=== PATIENT | female | born 1970 | race Two or more races ===

== ENCOUNTER 2018-04-19 20:50 | Emergency (ER) | payer MEDICAID ==
[~2018-04-19] VITALS: Ht 160 cm; Wt 68.0 kg
[~2018-04-19 20:50] MED LIST: ATIVAN0.5 MG ORAL; IBUPROFEN600 MG ORAL
[2018-04-19] MEDS ORDERED: MUPIROCIN22 GM TOPIC (21:27)
[2018-04-19] MEDS ORDERED: DOXYCYCLINE MO100 MG ORAL (21:27)
--- NOTE | 2018-04-19 21:27 | Emergency Room Report ---
History of Present Illness General Chief Complaint: Skin Rash/Abscess Source: Patient Present Illness HPI Is a 47-year-old female with no significant past medical history. She presents a rash to her lower leg started yesterday. Slightly itching and redness and warmth. Unknown cause. No insect bite that she knew. No fever chills but no drainage. Has not anything for it. No other complaint. Allergies: Coded Allergies: No Known Allergies (Unverified , 04/19/18) Patient History Past Medical History: see triage record, old chart reviewed Past Surgical History: none Pertinent Family History: none Social History: Denies: smoking Last Menstrual Period: 04/16/18 Now: No Immunizations: other Reviewed Nursing Documentation: PMH: Agreed; PSxH: Agreed Nursing Documentation-PMH Past Medical History: No Stated History Review of Systems Eye: Denies: eye pain, blurred vision ENT: Denies: ear pain, nose congestion, throat swelling Respiratory: Denies: cough, shortness of breath Cardiovascular: Denies: chest pain, palpitations Gastrointestinal: Denies: abdominal pain, diarrhea, nausea, vomiting Musculoskeletal: Denies: back pain, joint pain Skin: Reports: rash Neurological: Denies: headache, numbness Endocrine: Denies: increased thirst, increased urine Hematologic/Lymphatic: Denies: easy bruising All Other Systems: negative except mentioned in HPI Physical Exam Vital Signs Date Time Temp Pulse Resp B/P (MAP) Pulse Ox O2 Delivery O2 Flow Rate FiO2 04/19/18 21:11 98.2 64 16 100/59 98 Room Air 98.2 vitals normal Sp02 EP Interpretation: reviewed, normal General Appearance: well appearing, no apparent distress, alert Head: normocephalic, atraumatic Eyes: bilateral eye PERRL, bilateral eye EOMI ENT: hearing grossly normal, normal pharynx Neck: full range of motion, supple, no meningismus Respiratory: chest non-tender, lungs clear, normal breath sounds Cardiovascular #1: regular rate, rhythm, no murmur Gastrointestinal: normal bowel sounds, non tender, no mass, no organomegaly, no bruit, non-distended Musculoskeletal: back normal, gait/station normal, normal range of motion, other - There is an erythematous lesion measuring about 4 cm in the right inner thigh near the knee. No abscess. Lightly warm to the touch. No induration. Psychiatric: mood/affect normal Skin: warm/dry Medical Decision Making Diagnostic Impression: Primary Impression: Cellulitis of left leg without foot Additional Impression: Cellulitis of right leg without foot ER Course Patient with a cellulitis of the lower extremities. No evidence of any abscess. No necrotizing fasciitis. No septic joint. We'll discharge home. Last Vital Signs Date Time Temp Pulse Resp B/P (MAP) Pulse Ox O2 Delivery O2 Flow Rate FiO2 04/19/18 21:11 98.2 64 16 100/59 98 Room Air 98.2 Status: unchanged Disposition: HOME, SELF-CARE Condition: Stable Scripts Doxycycline Monohydrate* (DOXYCYCLINE MONOHYDRATE*) 100 Mg Capsule 100 MG ORAL Q12H, #14 CAP 0 Refills Prov: ALECIA CHRITSINE M.D. 04/19/18 Mupirocin* (MUPIROCIN*) 22 Gm Oint...g. 1 APPLIC TOPIC THREE TIMES A DAY, #22 GM Prov: ALECIA CHRISTINE M.D. 04/19/18 Additional Instructions: follow-up with your doctor in 7 days. Return if worse ALECIA CHRISTINE M.D. Apr 19, 2018 21:27
[2018-04-19 21:33] VITALS: BP 100/59
== END 2018-04-19 21:45 | disposition home or self-care (01) ==
LOC: EMR 21:35
DX: L03.116 Cellulitis of left lower limb (principal); L03.115 Cellulitis of right lower limb
CPT/HCPCS: 99283

== ENCOUNTER 2018-11-28 21:06 | Emergency (ER) | payer MEDICAID ==
[~2018-11-28] VITALS: Ht 160 cm; Wt 68.0 kg
[~2018-11-28 21:06] MED LIST changes: +DOXYCYCLINE MO100 MG ORAL; +MUPIROCIN22 GM TOPIC
[2018-11-28] MEDS ORDERED: NKM (21:30)
[2018-11-28 21:50] VITALS: BP 119/77
--- NOTE | 2018-11-28 21:50 | NUR ---
ED Nurse Note: Patient presents to ED c/o chest pain and shortness of breath for 6 hours. Patient AOx4, VSS, ambulatory with steady gait, no s/s of acute distress noted at this time. Patient reports 8/10 pain. Patient seen by TALYAD at bedside.
--- NOTE | 2018-11-28 21:50 | Emergency Room Report ---
History of Present Illness General Chief Complaint: Chest Pain Source: Patient Present Illness HPI Patient presents with complaints of discomfort to her left breast area Reports that she felt a small mass about a week ago Patient reports that she had seen her primary physician however was given an appointment about 2 months later Since yesterday and outpatient felt a pain to the midsternal area She also had reported shortness of breath sensation at times Not correlated with any position Denies any fevers denies any cough denies any shortness of breath currently Denies any pleurisy denies any recent travel Allergies: Coded Allergies: No Known Allergies (Unverified , 04/19/18) Patient History Past Medical History: see triage record Pertinent Family History: none Last Menstrual Period: still on Now: No : 8 Para: 8 Reviewed Nursing Documentation: PMH: Agreed; PSxH: Agreed Nursing Documentation-PMH Past Medical History: No Stated History Review of Systems All Other Systems: negative except mentioned in HPI Physical Exam Vital Signs Date Time Temp Pulse Resp B/P (MAP) Pulse Ox O2 Delivery O2 Flow Rate FiO2 11/28/18 21:24 98.6 56 16 119/77 97 Room Air Sp02 EP Interpretation: reviewed, normal General Appearance: well appearing, no apparent distress Head: normocephalic, atraumatic Eyes: bilateral eye PERRL, bilateral eye EOMI ENT: hearing grossly normal, normal pharynx, TMs + canals normal, uvula midline Neck: full range of motion, supple, no meningismus, no bony tend Respiratory: lungs clear, normal breath sounds, no rhonchi, no respiratory distress, no retraction, no accessory muscle use Cardiovascular #1: normal peripheral pulses, regular rate, rhythm, no edema, no gallop, no JVD, no murmur Gastrointestinal: normal bowel sounds, non tender, soft, no mass, no organomegaly, non-distended, no guarding, no hernia, no pulsatile mass, no rebound Genitourinary: no CVA tenderness Musculoskeletal: normal inspection Neurologic: oriented x3, responsive, marble helper III-XII nml as tested, motor strength/ tone normal, sensory intact Psychiatric: mood/affect normal Skin: other - Examination of the left breast area, reveals a tender nodule within the area molar region at approximately 9:00, the area will itself is somewhat flat compared to the right side, no other masses are palpable throughout the breast tissue, no palpable masses in the axilla, there was nothing that was able to be expressed from the areola Lymphatic: normal inspection, no adenopathy Medical Decision Making Diagnostic Impression: Primary Impression: Chest pain Additional Impression: Breast mass ER Course Patient is a fairly complex patient with multiple differential to consideration including but not limited to cardiac cardiopulmonary and vascular emergencies With regards to the complaints of chest pain EKG and chest x-ray are normal Patient's main complaint appears to be related to the palpable mass in the left breast This is discussed with the patient and patient's daughter They are aware that the next test is a mammogram the requires to be performed Differentials and consideration have to include cancer Patient is aware of this and will follow closely EKG Diagnostic Results Rate: normal Rhythm: NSR ST Segments: no acute changes Rhythm Strip Diag. Results EP Interpretation: yes Rate: 60 Rhythm: NSR, no PVC's, no ectopy Chest X-Ray Diagnostic Results Chest X-Ray Diagnostic Results : Chest X-Ray Ordered: Yes # of Views/Limited/Complete: 1 View Indication: Chest Pain EP Interpretation: Yes Interpretation: no consolidation, no effusion, no pneumothorax Impression: No acute disease Electronically Signed by: Cole Vasquez DO Last Vital Signs Date Time Temp Pulse Resp B/P (MAP) Pulse Ox O2 Delivery O2 Flow Rate FiO2 11/28/18 21:24 98.6 56 16 119/77 97 Room Air Status: improved Disposition: HOME, SELF-CARE Condition: Improved Additional Instructions: Patient is provided with the discharge instructions notified to follow up with primary doctor in the next 2-3 days otherwise return to the er with any worsening symptoms. Please note that this report is being documented using [employer] technology. This can lead to erroneous entry secondary to incorrect interpretation by the dictating instrument. Cole Vasquez DO Nov 28, 2018 21:50
[2018-11-28 22:30] VITALS: BP 119/77
--- NOTE | 2018-11-28 22:30 | NUR ---
ED Nurse Note: Patient cleared for discharge by ERMChavez. Patient AOx4, VSS, ambulatory with steady gait, no s/s of acute distress noted at this time. Patient provided with discharge instructions. Patient verbalized understanding. Patient took all personal belongings with her. Patient has daughter at bedside to take her home. Patient ID band removed. Patient instructed to follow up with primary doctor for mammogram.
--- NOTE | 2018-11-29 12:38 | Diagnostic Imaging Report ---
Indication: Chest pain Technique: One view of the chest Comparison: 08/04/2016 Findings: Lungs and pleural spaces are clear. Heart size is normal. No significant interim change Impression: No acute process
== END 2018-11-28 23:30 | disposition home or self-care (01) ==
LOC: EMR 21:41
DX: R07.9 Chest pain, unspecified (principal); N63.0 Unspecified lump in unspecified breast
CPT/HCPCS: 71045; 99283

== ENCOUNTER 2019-01-03 20:12 | Emergency (ER) | payer MEDICAID ==
[~2019-01-03] VITALS: Ht 160 cm; Wt 68.5 kg
[~2019-01-03 20:12] MED LIST changes: +NKM
[2019-01-03] MEDS ORDERED: depression med (20:54)
--- NOTE | 2019-01-03 20:57 | Emergency Room Report ---
History of Present Illness General Chief Complaint: Abdominal Pain Source: Patient Present Illness HPI Patient is a 48-year-old female presented after increased epigastric crampy pain. Patient had associated nausea and diarrhea. Patient denies any fever. She had not been feeling dizzy or lightheaded. She denies prior abdominal surgeries. She had prior history of fatty liver. Pain was intermittent. Allergies: Coded Allergies: No Known Allergies (Unverified , 04/19/18) Patient History Past Medical History: see triage record Past Surgical History: none Last Menstrual Period: 12/23/2018 Now: No Reviewed Nursing Documentation: PMH: Agreed; PSxH: Agreed Nursing Documentation-PMH Past Medical History: No History, Except For History Of Psychiatric Problem: Yes - depression Review of Systems All Other Systems: negative except mentioned in HPI Physical Exam Vital Signs Date Time Temp Pulse Resp B/P (MAP) Pulse Ox O2 Delivery O2 Flow Rate FiO2 01/03/19 20:51 98.6 86 16 111/78 99 Room Air Sp02 EP Interpretation: reviewed, normal General Appearance: normal inspection, well appearing, no apparent distress, alert, GCS 15, non-toxic Head: atraumatic ENT: normal ENT inspection, hearing grossly normal, normal voice Neck: normal inspection, full range of motion, supple, no bony tend Respiratory: normal inspection, lungs clear, normal breath sounds, no respiratory distress, no retraction, no wheezing Cardiovascular #1: regular rate, rhythm, no edema Gastrointestinal: normal inspection, normal bowel sounds, non tender, soft, no guarding, no hernia Genitourinary: no CVA tenderness Musculoskeletal: normal inspection, back normal, normal range of motion Neurologic: normal inspection, alert, responsive, speech normal Psychiatric: normal inspection, judgement/insight normal, mood/affect normal Skin: normal inspection, normal color, no rash Medical Decision Making Diagnostic Impression: Primary Impression: Abdominal pain ER Course Patient presented for abdominal pain. Differential diagnoses included ischemic bowel, appendicitis, perforated viscus, abdominal aortic aneurysm, inferior myocardial infarction, viral gastroenteritis among others. Patient has a benign exam and does not appear to require any further imaging or laboratory testing at this timePatient was noted to have what appears to be gastroenteritis. Patient was given indications for symptomatic treatment.Patient presented with a viral gastroenteritis. She does not appear to have any evidence of acute abdomen. Patient given medication prescriptions for symptomatic treatment. Patient was advised outpatient follow-up with her primary care physician. The patient is advised to follow up with primary care doctor in 1-2 days. Patient is advised to return if any worsening condition or if any changes in status that are concerning. This report is dictated with [employer] machine lead burner software which may occasionally lead to discrepancies related to use of this software. Labs Test 01/03/19 21:00 Urine HCG, Qualitative Negative (NEGATIVE) Last Vital Signs Date Time Temp Pulse Resp B/P (MAP) Pulse Ox O2 Delivery O2 Flow Rate FiO2 01/03/19 20:51 98.6 86 16 111/78 99 Room Air Status: improved Disposition: HOME, SELF-CARE Condition: Stable Scripts Ondansetron (Zofran) 4 Mg Tablet 4 MG ORAL Q6H PRN for Nausea & Vomiting, #30 TAB 0 Refills Prov: Dom Colunga MD 01/03/19 Dicyclomine Hcl* (DICYCLOMINE HCL*) 10 Mg Capsule 10 MG PO QID, #30 CAP Prov: Dom Colunga MD 01/03/19 Dom Colunga MD Jan 03, 2019 20:57
[2019-01-03] MEDS ORDERED: ZOFRAN4 MG ORAL (20:59)
[2019-01-03] MEDS ORDERED: DICYCLOMINE HCL10 MG PO (20:59)
[2019-01-03 21:00] VITALS: BP 111/78
[2019-01-03] MEDS ORDERED: Dicyclomine HCl 10mg/5ml oral soln ORAL ONE (21:00)
[2019-01-03] MEDS ORDERED: Lidocaine 2% Visc 15ml soln ORAL ONE (21:00)
--- NOTE | 2019-01-03 21:01 | NUR ---
ED Nurse Note: Patient walk in c/o upper abdominal pain and diarrhea since wednesday. Patient reports fever and chills.
[2019-01-03 21:55] VITALS: BP 111/78
--- NOTE | 2019-01-03 21:55 | NUR ---
ER DISCHARGE NOTE: Patient is cleared to be discharged per ERMD, pt is aox4, on room air, with stable vital signs. pt was given dc and prescription instructions, pt was able to verbalize understanding, pt id band removed. pt is able to ambulate with steady gait. pt took all belongings.
== END 2019-01-03 21:55 | disposition home or self-care (01) ==
LOC: EMR 20:47
DX: R10.13 Epigastric pain (principal); R11.0 Nausea; R19.7 Diarrhea, unspecified; F32.9 Major depressive disorder, single episode, unspecified
CPT/HCPCS: 81025; 99283

== ENCOUNTER 2019-07-08 16:53 | Emergency (ER) | payer MEDICAID ==
[~2019-07-08] VITALS: Ht 160 cm; Wt 68.0 kg
[~2019-07-08 16:53] MED LIST changes: +DICYCLOMINE HCL10 MG PO; +ZOFRAN4 MG ORAL; +depression med
--- NOTE | 2019-07-08 17:40 | NUR ---
ED Nurse Note: pt presents to ED c/o lower abd pain that she rates a 10/10 which radiates throughout her body causing generalized pain. pt also reports dysuria and increased fatgiue, SOB since yesterday. pt reports feeling nauseated but not vomiting. upon assessment pt has stable vital signs: HR: 56 RR: 11 100% on room air 111/65
[2019-07-08 17:45] VITALS: BP 111/65
[2019-07-08] MEDS ORDERED: Dicyclomine HCl 10mg/5ml oral soln ORAL ONE (17:45)
[2019-07-08] MEDS ORDERED: Mylanta II UD 30ml ORAL ONE (17:45)
[2019-07-08] MEDS ORDERED: Lidocaine 2% Visc 15ml soln ORAL ONE (17:45)
--- NOTE | 2019-07-08 17:50 | NUR ---
ED Nurse Note: pt's is at bedside
[2019-07-08 18:16] LABS: APPEARANCE,URINE CLEAR; BILIRUBIN, URINE NEGATIVE (NEGATIVE); COLOR,URINE PALE YELLOW; GLUCOSE, URINE (UA) NEGATIVE (NEGATIVE); KETONES,URINE NEGATIVE (NEGATIVE); LEUKOCYTE ESTERASE ,URINE NEGATIVE (NEGATIVE); NITRITE,URINE NEGATIVE (NEGATIVE); PH,URINE 6 (4.5-8.0); PROTEIN,URINE NEGATIVE (NEGATIVE); UROBILINOGEN,URINE NORMAL MG/DL (0.0-1.0)
--- NOTE | 2019-07-08 18:20 | NUR ---
ED Nurse Note: pt is reporting chills, oral temp is 97.9
[2019-07-08 18:23] LABS: ANION GAP 8 mmol/L (5-15); BLOOD UREA NITROGEN 10 mg/dL (7-18); CALCIUM 9.1 MG/DL (8.5-10.1); CARBON DIOXIDE 26 MMOL/L (21-32); CHLORIDE 106 MMOL/L (98-107); CREATININE 0.8 MG/DL (0.55-1.30); EOSINOPHILS % (AUTO) 2.1 % (0.0-3.0); HEMATOCRIT 40.9 % (37.0-47.0); HEMOGLOBIN 14.5 G/DL (12.0-16.0); MEAN CORPUSCULAR VOLUME 92 FL (80-99); MONOCYTES % (AUTO) 6.4 % (1.0-10.0); NEUTROPHILS % (AUTO) 54.6 % (45.0-75.0); PLATELET COUNT 211 K/UL (150-450); POTASSIUM 3.9 MMOL/L (3.5-5.1); RED BLOOD COUNT 4.42 M/UL (4.20-5.40); RED CELL DISTRIBUTION WIDTH 10.5 % (11.6-14.8); SODIUM 140 MMOL/L (136-145); WHITE BLOOD COUNT 7.3 K/UL (4.8-10.8)
[2019-07-08 18:28] LABS: ALANINE AMINOTRANSFERASE 25 U/L (12-78); ALBUMIN 3.8 G/DL (3.4-5.0); ALBUMIN/GLOBULIN RATIO 0.9 (1.0-2.7); ALKALINE PHOSPHATASE 71 U/L (46-116); ASPARTATE AMINO TRANSFERASE 16 U/L (15-37); BILIRUBIN,TOTAL 0.4 MG/DL (0.2-1.0)
[2019-07-08 18:55] VITALS: BP 124/71
--- NOTE | 2019-07-08 19:11 | NUR ---
ED Nurse Note: HAND-OFF: Report given to NENITA Chavez. pt will be d/c
[2019-07-08] MEDS ORDERED: RANITIDINE HCL150 MG ORAL (19:14)
[2019-07-08] MEDS ORDERED: DICYCLOMINE HCL10 MG ORAL (19:14)
[2019-07-08] MEDS ORDERED: ONDANSETRON ODT4 MG BC (19:14)
--- NOTE | 2019-07-08 19:15 | NUR ---
ED Nurse Note: Recieved report to resume care, [facility], pain is better, iv site patent, will remove and prepare for d/c, at bedside.
[2019-07-08 20:00] VITALS: BP 124/71
--- NOTE | 2019-07-08 20:00 | NUR ---
ER DISCHARGE NOTE: Patient is cleared to be discharged per ERMD, pt is aox4, on room air, with stable vital signs. pt was given dc and prescription instructions, pt was able to verbalize understanding, pt id band and iv site removed without complications. pt is able to ambulate with steady gait. pt took all belongings. pt d/c by eugene reddy.
--- NOTE | 2019-07-08 20:58 | Emergency Room Report ---
History of Present Illness General Chief Complaint: Abdominal Pain Source: Patient Present Illness HPI 49-year-old female presents ED for evaluation. Complaining of abdominal pain x1 day. Pain is epigastric, burning, 7 out of 10, radiating to the back. Notes nausea, denies vomiting. Denies chest pain or shortness of breath. Denies diarrhea. No other aggravating relieving factors. Denies any other associated symptoms Allergies: Coded Allergies: No Known Allergies (Unverified , 04/19/18) Patient History Past Medical History: none Past Surgical History: none Pertinent Family History: none Social History: Denies: smoking, alcohol use, drug use Now: No Immunizations: UTD Reviewed Nursing Documentation: PMH: Agreed; PSxH: Agreed Nursing Documentation-PMH Past Medical History: No Stated History Review of Systems All Other Systems: negative except mentioned in HPI Physical Exam Vital Signs Date Time Temp Pulse Resp B/P (MAP) Pulse Ox O2 Delivery O2 Flow Rate FiO2 07/08/19 17:15 98.8 62 18 104/71 (82) 98 Room Air Sp02 EP Interpretation: reviewed, normal General Appearance: no apparent distress, alert, GCS 15, non-toxic Head: normocephalic, atraumatic Eyes: bilateral eye normal inspection, bilateral eye PERRL ENT: hearing grossly normal, normal pharynx, no angioedema, normal voice Neck: full range of motion, supple/symm/no masses Respiratory: chest non-tender, lungs clear, normal breath sounds, speaking full sentences Cardiovascular #1: regular rate, rhythm, no edema Cardiovascular #2: 2+ carotid (R), 2+ carotid (L), 2+ radial (R), 2+ radial (L) , 2+ dorsalis pedis (R), 2+ dorsalis pedis (L) Gastrointestinal: normal bowel sounds, soft, non-distended, no guarding, no rebound, tenderness - epigastric Rectal: deferred Genitourinary: normal inspection, no CVA tenderness Musculoskeletal: back normal, gait/station normal, normal range of motion, non- tender Neurologic: alert, oriented x3, responsive, motor strength/tone normal, sensory intact, speech normal Psychiatric: judgement/insight normal, memory normal, mood/affect normal, no suicidal/homicidal ideation Reflexes: 3+ bicep (R), 3+ bicep (L), 3+ tricep (R), 3+ tricep (L), 3+ knee (R) , 3+ knee (L) Lymphatic: no adenopathy Medical Decision Making Diagnostic Impression: Primary Impression: Gastritis Qualified Codes: K29.00 - Acute gastritis without bleeding ER Course Hospital Course 49-year-old F presents to ED with epigastric pain with nausea differential diagnosis: gastritis, SBO, cholecystits Clinical course Patient placed on stretcher. On desk monitor. After initial history and physical I ordered labs, IV fluids, Zofran, GI cocktail and pepcid Labs - no leukocytosis, no electrolyte abnormalities, LFTs normal, Upon reassessment, patient states pain has improved. findings consistent with gastritis. Discussed findings with patient. Will discharge to home with prescriptions. Does not have a PMD. Will provide referrals I feel this is a highly complex case requiring extensive working including EKG/ Rhythm strip, Xray/CT/US, Blood/urine lab work, repeat exams while in ED, and administration of strong opiates/narcotics for pain control, admission to hospital or close patient follow up. Diagnosis - gastritis Stable and discharged to home with prescriptions for Zantac, zofran, bentyl. Followup with PMD. Return to ED if symptoms recur or worsen Labs Test 07/08/19 17:50 07/08/19 17:59 Urine Color Pale yellow Urine Appearance Clear Urine pH 6 (4.5-8.0) Urine Specific [place] 1.005 (1.005-1.035) Urine Protein Negative (NEGATIVE) Urine Glucose (UA) Negative (NEGATIVE) Urine Ketones Negative (NEGATIVE) Urine Blood Negative (NEGATIVE) Urine Nitrite Negative (NEGATIVE) Urine Bilirubin Negative (NEGATIVE) Urine Urobilinogen Normal MG/DL (0.0-1.0) Urine Leukocyte Esterase Negative (NEGATIVE) Urine HCG, Qualitative Negative (NEGATIVE) White Blood Count 7.3 K/UL (4.8-10.8) Red Blood Count 4.42 M/UL (4.20-5.40) Hemoglobin 14.5 G/DL (12.0-16.0) Hematocrit 40.9 % (37.0-47.0) Mean Corpuscular Volume 92 FL (80-99) Mean Corpuscular Hemoglobin 32.7 PG (27.0-31.0) Mean Corpuscular Hemoglobin Concent 35.3 G/DL (32.0-36.0) Red Cell Distribution Width 10.5 % (11.6-14.8) Platelet Count 211 K/UL (150-450) Mean Platelet Volume 6.5 FL (6.5-10.1) Neutrophils (%) (Auto) 54.6 % (45.0-75.0) Lymphocytes (%) (Auto) 36.0 % (20.0-45.0) Monocytes (%) (Auto) 6.4 % (1.0-10.0) Eosinophils (%) (Auto) 2.1 % (0.0-3.0) Basophils (%) (Auto) 1.0 % (0.0-2.0) Sodium Level 140 MMOL/L (136-145) Potassium Level 3.9 MMOL/L (3.5-5.1) Chloride Level 106 MMOL/L (98-107) Carbon Dioxide Level 26 MMOL/L (21-32) Anion Gap 8 mmol/L (5-15) Blood Urea Nitrogen 10 mg/dL (7-18) Creatinine 0.8 MG/DL (0.55-1.30) Estimat Glomerular Filtration Rate > 60 mL/min (>60) Glucose Level 112 MG/DL (74-106) Calcium Level 9.1 MG/DL (8.5-10.1) Total Bilirubin 0.4 MG/DL (0.2-1.0) Aspartate Amino Transf (AST/SGOT) 16 U/L (15-37) Alanine Aminotransferase (ALT/SGPT) 25 U/L (12-78) Alkaline Phosphatase 71 U/L (46-116) Total Protein 7.9 G/DL (6.4-8.2) Albumin 3.8 G/DL (3.4-5.0) Globulin 4.1 g/dL Albumin/Globulin Ratio 0.9 (1.0-2.7) Lipase 182 U/L (73-393) Human Chorionic Gonadotropin, Qual Negative (NEGATIVE) Last Vital Signs Date Time Temp Pulse Resp B/P (MAP) Pulse Ox O2 Delivery O2 Flow Rate FiO2 07/08/19 18:55 23 124/71 99 Room Air 07/08/19 18:21 97.9 07/08/19 17:45 62 Status: improved Disposition: HOME, SELF-CARE Condition: Stable Scripts Dicyclomine Hcl* (DICYCLOMINE HCL*) 10 Mg Capsule 10 MG ORAL QID, #20 CAP Prov: Butch Haddad MD 07/08/19 Ranitidine Hcl* (ZANTAC*) 150 Mg Tablet 150 MG ORAL TWICE A DAY, #30 TAB Prov: Butch Haddad MD 07/08/19 Ondansetron Odt* (ZOFRAN ODT*) 4 Mg Tab.rapdis 4 MG BC EVERY 6 HOURS PRN for Nausea & Vomiting, #20 TAB 0 Refills Prov: Butch Haddad MD 07/08/19 Referrals: NOT CHOSEN IPA/,REFERRING (PCP) [facility] Patient Instructions: Gastritis, Adult, Pyqu-cx-Oacl Butch Haddad MD Jul 08, 2019 20:58
== END 2019-07-08 20:00 | disposition home or self-care (01) ==
LOC: EMR 18:16
DX: K29.00 Acute gastritis without bleeding (principal)
CPT/HCPCS: 36415; 80053; 81003; 81025; 83690; 84703; 85025; 96361; 96374; 96375; J2405; S0028; Z7502; 99284

== ENCOUNTER 2020-02-28 15:07 | Emergency (ER) | payer MEDICAID ==
[~2020-02-28] VITALS: Ht 160 cm; Wt 65.8 kg
--- NOTE | 2020-02-28 15:01 | NUR ---
ED Nurse Note: PT walked in to ed for C/O fever and cough x 5 days. temp at triage is 101 f orally
[2020-02-28 15:02] VITALS: BP 116/64
[~2020-02-28 15:07] MED LIST changes: +DICYCLOMINE HCL10 MG ORAL; +OMEPRAZOLE20 M3 ORAL; +ONDANSETRON ODT4 MG BC; +RANITIDINE HCL150 MG ORAL; +TYLENOL EXTRA500 MG ORAL; +ZOFRAN4 M1 ORAL
--- NOTE | 2020-02-28 15:42 | Emergency Room Report ---
History of Present Illness General Chief Complaint: Flu Like Symptoms Source: Patient (Hardeep Parks) Present Illness HPI 49-year-old female with no significant past medical history here complaining of 1 week of cough and 1 day of fever. Patient Fahrenheit upon arrival. Denies any shortness of denies generalized body ache. Patient reports that she has been staying home with her mom and brother the whole time. Sitting comfortably with stable vital signs other than a temperature 1. Denies any history of diabetes, tobacco smoke, drug use. Denies . Has not taken medication for symptom relief. (Hardeep Parks) Allergies: Coded Allergies: No Known Allergies (Unverified , 04/19/18) COVID-19 Screening Contact w/high risk pt: No Recent Travel to affected area: No Experienced COVID-19 symptoms?: Yes COVID-19 symptoms experienced: Fever (T>100.4F or >38C), Cough, Flu-Like Symptoms COVID-[address] MARKER: No (Hardeep Parks) Patient History Past Medical History: see triage record Past Surgical History: none Pertinent Family History: none Last Menstrual Period: na Now: No Immunizations: UTD Reviewed Nursing Documentation: PMH: Agreed; PSxH: Agreed (Hardeep Parks) Nursing Documentation-PMH Past Medical History: No Stated History (Hardeep Parks) Review of Systems All Other Systems: negative except mentioned in HPI (Hardeep Parks) Physical Exam Vital Signs Date Time Temp Pulse Resp B/P (MAP) Pulse Ox O2 Delivery O2 Flow Rate FiO2 02/28/20 14:59 100.9 84 18 116/64 (81) 98 02/28/20 15:02 Room Air Sp02 EP Interpretation: reviewed, abnormal - Elevated temperature General Appearance: no apparent distress, alert, GCS 15, non-toxic Head: normocephalic, atraumatic Eyes: bilateral eye normal inspection, bilateral eye PERRL ENT: hearing grossly normal, normal pharynx, no angioedema, normal voice Neck: full range of motion, supple/symm/no masses Respiratory: chest non-tender, lungs clear, normal breath sounds, no rhonchi, no retraction, speaking full sentences Cardiovascular #1: regular rate, rhythm, no edema, no murmur Gastrointestinal: normal bowel sounds, non tender, soft, non-distended, no guarding, no rebound Rectal: deferred Genitourinary: no CVA tenderness Musculoskeletal: back normal Neurologic: alert, motor strength/tone normal, oriented x3, sensory intact, responsive, speech normal Psychiatric: judgement/insight normal, memory normal, mood/affect normal, no suicidal/homicidal ideation Skin: no rash Lymphatic: no adenopathy (Hardeep Parks) Medical Decision Making PA Attestation All my diagnosis and treatment plans were reviewed ad discussed with my supervising physician Dr. Haddad (Hardeep Parks) Diagnostic Impression: Primary Impression: Suspected 2019 novel coronavirus infection Additional Impression: URI (upper respiratory infection) ER Course 49-year-old female with no significant past medical history here complaining of 1 week of cough and 1 day of fever. Patient Fahrenheit upon arrival. Denies any shortness of denies generalized body ache. Patient reports that she has been staying home with her mom and brother the whole time. Sitting comfortably with stable vital signs other than a temperature 1. Denies any history of diabetes, tobacco smoke, drug use. Denies . Has not taken medication for symptom relief. Ddx considered but are not limited to: Coronavirus, strep pharyngitis, URI, tonsillitis, peritonsillar abscess, influneza Vital signs: are WNL, pt. is afebrile H&PE are most consistent with: Suspected coronavirus, URI ORDERS: Chest x-ray, azithromycin, Phenergan, albuterol, covert testing ED INTERVENTIONS: Tylenol DISCHARGE: At this time pt. is stable for d/c to home. Will provide printed patient care instructions, and any necessary prescriptions. Care plan and follow up instructions have been discussed with the patient prior to discharge. Patient to follow primary doctor, take medication as directed, self isolate for 2 weeks, increase oral hydration, if worsening symptoms in respiratory distress return to the emergency room (Hardeep Parks) ER Course This is an addendum to the patient's chart, at this time in the morning at the time of dictation I was handed a positive covid-19 result. Patient is contacted. She reports feeling well and improved from her previous visit. She was notified regarding the testing results the appropriate quarantine and repeat testing after resolution of symptoms As needed And strict return to the emergency room with worsening symptoms precautions (Cole Vasquez DO) Chest X-Ray Diagnostic Results Chest X-Ray Diagnostic Results : Chest X-Ray Ordered: Yes # of Views/Limited/Complete: 1 View Indication: Other - Cough EP Interpretation: Yes PA Xray: Interpretation reviewed, by supervising MD, and agrees with findings. Interpretation: other - Consolidation on the right lower lobe Impression: Other - Consolidation right lower lobe Electronically Signed by: Hardeep Espinoza PA-C (Hardeep Parks) Last Vital Signs Date Time Temp Pulse Resp B/P (MAP) Pulse Ox O2 Delivery O2 Flow Rate FiO2 02/28/20 15:02 100.9 84 18 116/64 98 Room Air (Hardeep Parks) Disposition: HOME, SELF-CARE Condition: Stable Scripts Azithromycin* (ZITHROMAX*) 250 Mg Tablet 250 MG ORAL DAILY, #6 TAB 0 Refills Take two tables once daily for 1 day, then one tablet once daily for 4 days. Prov: Hardeep Parks 02/28/20 Promethazine Hcl (PROMETHAZINE HCL*) 6.25 Mg/5 Ml Syrup 5 ML ORAL Q8H, #120 ML 0 Refills Prov: Hardeep Parks 02/28/20 Albuterol Sulfate (VENTOLIN HFA) 18 Gm Hfa.aer.ad 2 PUFFS INH EVERY 6 HOURS, #18 GM 0 Refills Prov: Hardeep Parks 02/28/20 Referrals: NOT CHOSEN IPA/,REFERRING (PCP) Patient Instructions: Upper Respiratory Infection, Adult, [id number] Additional Instructions: Take medication as directed, follow-up with your primary doctor, you need to be self quarantining for 14 days, if in respiratory distress and worsening symptoms return to the emergency room. Hardeep Parks Feb 28, 2020 15:42 Cole Vasquze DO Feb 29, 2020 10:00
[2020-02-28] MEDS ORDERED: VENTOLIN HFA18 GM INH (15:43)
[2020-02-28] MEDS ORDERED: PROMETHAZI6.25 MG/1 ORAL (15:43)
[2020-02-28] MEDS ORDERED: ZITHROMAX250 MG ORAL (15:43)
[2020-02-28 15:55] VITALS: BP 120/60
--- NOTE | 2020-02-28 15:55 | NUR ---
ER DISCHARGE NOTE: Patient is cleared to be discharged per ERMD, pt is aox4, on room air, with stable vital signs. pt was given dc and prescription instructions, pt was able to verbalize understanding, pt id iv site removed without complications. pt is able to ambulate with steady gait. pt took all belongings.
--- NOTE | 2020-02-28 16:57 | Diagnostic Imaging Report ---
Indication: Cough Technique: One view of the chest Comparison: 11/28/2018 Findings: Suboptimal inspiration currently. There are hazy opacities of both lung bases. The heart size is normal. Impression: Bilateral basilar hazy opacities. Could represent artifacts due to suboptimal inspiration or overlying soft tissue, but infiltrates also possible. Correlate with clinical findings
== END 2020-02-28 15:55 | disposition home or self-care (01) ==
LOC: EDBD 15:07 → EMR 15:24
DX: U07.1 COVID-19 (principal); J06.9 Acute upper respiratory infection, unspecified
CPT/HCPCS: 71045; Z7502; 99283

== ENCOUNTER 2020-07-28 11:54 | Emergency (ER) | payer MEDICAID ==
[~2020-07-28] VITALS: Ht 160 cm; Wt 63.5 kg
[~2020-07-28 11:54] MED LIST changes: +PROMETHAZI6.25 MG/1 ORAL; +VENTOLIN HFA18 GM INH; +ZITHROMAX250 MG ORAL
[2020-07-28 12:09] VITALS: BP 111/72
--- NOTE | 2020-07-28 12:16 | Emergency Room Report ---
History of Present Illness General Chief Complaint: Back Pain-No Injury Source: Patient Present Illness HPI Disclaimer: Please note that this report is being documented using DRAGON technology. This can lead to erroneous entry secondary to incorrect interpretation by the dictating instrument. HPI: 50-year-old female presents for evaluation of back pain. Symptoms present for 3 months. She reports an aching intermittent pain in the lower lumbar spine on the midline. Denies history of trauma or recent trauma. Denies numbness, tingling, weakness, difficulty passing urine, fever, chills. She states the pain was initially intermittent however the past month seems to be more constant. Exacerbated by bending and over and cleaning and relieved by rest. She is not taking regular medication for this. Has not seen her PMD as she does not have an appointment until September 2020. Does not inject any medications or IV drugs. Otherwise denies recent fever, chills, chest pain, palpitation, shortness of breath, abdominal pain, vomiting or diarrhea. Does report some lower pelvic pressure. Reports an abnormally long menstrual period 3 months ago and has not had her period since. Denies vaginal bleeding or vaginal discharge. PMH: Anxiety, depression PSH: Allergies: Reviewed Social Hx: Reviewed Allergies: Coded Allergies: No Known Allergies (Unverified , 04/19/18) COVID-19 Screening Contact w/high risk pt: No Recent Travel to affected area: No Experienced COVID-19 symptoms?: No COVID-19 symptoms experienced: Fever (T>100.4F or >38C), Cough, Flu-Like Symptoms COVID-19 Testing performed VASCULAR TECHNOLOGIST: No Nursing Documentation-PMH Past Medical History: No Stated History Review of Systems All Other Systems: negative except mentioned in HPI Physical Exam Vital Signs Date Time Temp Pulse Resp B/P (MAP) Pulse Ox O2 Delivery O2 Flow Rate FiO2 07/28/20 12:00 98.4 60 17 111/72 (85) 96 Room Air General: Awake and alert, no acute distress HEENT: NC/AT. EOMI. Resp: Normal work of breathing Abdomen: Obese abdomen. Soft, nontender, nondistended. Skin: Intact. No abrasions, laceration or rash over the exposed skin MSK: Normal tone and bulk. Moving all extremities. No obvious deformity. Ambulating with steady gait. Strength is 5/5 at the hips, knees and ankles. Neuro: Awake and alert. Mentating appropriately. Sensation intact over the dermatomes of lower extremity bilaterally. No saddle anesthesia. Spine: No tenderness, step-off or deformity in the midline over the lower lumbar spine. No significant paraspinal tenderness. Medical Decision Making Diagnostic Impression: Primary Impression: Irregular menses Additional Impression: Lumbar strain ER Course 50-year-old female presents for evaluation of lower back pain. Differential includes was not limited to lumbar strain/sprain, paraspinal spasm, in particular disc disease, osteoarthritis, spondylolisthesis, occult fracture, UTI, pyelonephritis, menopause, dysfunctional uterine bleeding, among others. There are no clinical signs or symptoms of cauda equina syndrome or spinal epidural abscess. Patient is neurologically intact. No evidence of urinary tract infection. hCG is negative. Lumbar x-rays do not show acute fracture loss of vertebral height. There are some loss of lordosis which may represent spasm. Patient treated with lidocaine patch and Motrin. We will also di scharged with Robaxin. Regarding her abnormal uterine bleeding she should follow-up with her [employer]IST. At this time do not believe she requires emergent imaging or further labs. Discussed reasons to return to the emergency department. She understands and agrees with this treatment plan. Other X-Ray Diagnostic Results Other X-Ray Diagnostic Results : X-Ray ordered: Lumbar spine # of Views/Limited Vs Complete: 2 View Indication: Pain Interpretation: no dislocation, no soft tissue swelling, no fractures Impression: No acute disease Electronically Signed by: Electronically signed by Dr. Isidro Velásquez MD Last Vital Signs Date Time Temp Pulse Resp B/P (MAP) Pulse Ox O2 Delivery O2 Flow Rate FiO2 07/28/20 12:09 98.4 87 17 111/72 96 Room Air Disposition: HOME, SELF-CARE Condition: Stable Scripts Lidocaine Patch* (Lidoderm Patch*) 1 Each Adh..patch 1 PATCH TOPIC DAILY, #14 PATCH 0 Refills Patch(es) may remain in place for up to 12 hours in any 24-hour period. Prov: Isidro Velásquez MD 07/28/20 Methocarbamol* (ROBAXIN-750*) 750 Mg Tablet 750 MG PO TID, #21 TAB 0 Refills Prov: Isidro Velásquez MD 07/28/20 Ibuprofen* (MOTRIN*) 600 Mg Tablet 600 MG ORAL Q6H PRN for For Pain, #30 TAB 0 Refills Prov: Isidro Velásquez MD 07/28/20 Acetaminophen* (TYLENOL EXTRA STRENGTH*) 500 Mg Tablet 500 MG ORAL Q8H PRN for Prn Headache/Temp > 101, #30 TAB 0 Refills Prov: Isidro Velásquez MD 07/28/20 Isidro Velásquez MD Jul 28, 2020 12:16
[2020-07-28 12:39] LABS: APPEARANCE,URINE CLEAR; BILIRUBIN, URINE NEGATIVE (NEGATIVE); COLOR,URINE PALE YELLOW; GLUCOSE, URINE (UA) NEGATIVE (NEGATIVE); KETONES,URINE NEGATIVE (NEGATIVE); LEUKOCYTE ESTERASE ,URINE NEGATIVE (NEGATIVE); NITRITE,URINE NEGATIVE (NEGATIVE); PH,URINE 5 (4.5-8.0); PROTEIN,URINE NEGATIVE (NEGATIVE); UROBILINOGEN,URINE NORMAL MG/DL (0.0-1.0)
[2020-07-28] MEDS ORDERED: TYLENOL EXTRA500 MG ORAL (13:07)
[2020-07-28] MEDS ORDERED: ROBAXIN-750750 MG PO (13:07)
[2020-07-28] MEDS ORDERED: LIDODERM700 M1 TOPIC (13:07)
[2020-07-28] MEDS ORDERED: IBUPROFEN600 M1 ORAL (13:07)
--- NOTE | 2020-07-28 13:23 | Diagnostic Imaging Report ---
EXAM: XR Lumbar Spine, 3 Views CLINICAL HISTORY: PAIN TECHNIQUE: Frontal, lateral, and lateral coned-down views of the lumbar spine. COMPARISON: No relevant prior studies available. FINDINGS: Vertebrae: Unremarkable. 5 [id number] lumbar vertebral segments are seen. Lumbar vertebral body heights are preserved. Normal alignment. Disc spaces: No significant narrowing. Soft tissues: Unremarkable. IMPRESSION: Unremarkable lumbar spine x-rays.
[2020-07-28 13:38] VITALS: BP 132/85
== END 2020-07-28 13:43 | disposition home or self-care (01) ==
LOC: EMR 12:23
DX: N92.6 Irregular menstruation, unspecified (principal); S39.012A Strain of muscle, fascia and tendon of lower back, initial encounter; X50.9XXA Other and unspecified overexertion or strenuous movements or postures, initial encounter; F41.9 Anxiety disorder, unspecified; F32.9 Major depressive disorder, single episode, unspecified
CPT/HCPCS: 72020; 81003; 81025; Z7502; 99283

== ENCOUNTER 2020-12-02 17:58 | Emergency (ER) | payer MEDICAID ==
[~2020-12-02] VITALS: Ht 167.6 cm; Wt 77.1 kg
[~2020-12-02 17:58] MED LIST changes: +IBUPROFEN600 M1 ORAL; +LIDODERM700 M1 TOPIC; +ROBAXIN-750750 MG PO
--- NOTE | 2020-12-02 18:49 | Emergency Room Report ---
History of Present Illness General Chief Complaint: Abdominal Pain Source: Patient Present Illness HPI 50 YO female presents to the ED c/o 04/29 in severity lower midline pelvic pain that is constant and described as pressure x 2 days. Pt. denies urinary frequency, urgency, hematuria or dysuria. Denies constipation or diarrhea. Denies nausea or vomiting. Denies fevers or chills. Denies pain or tenderness elsewhere in the abdomen. She denies vaginal bleeding. She reports some aching in the low back that is of lesser degree. She denies numbness, tingling, weakness or skin color changes of the LE's. She denies pain in the lower extremities. She denies PmHx. She denies taking any medications. Allergies: Coded Allergies: No Known Allergies (Unverified , 04/19/18) COVID-19 Screening Contact w/high risk pt: No Recent Travel to affected area: No Experienced COVID-19 symptoms?: No COVID-19 symptoms experienced: Fever (T>100.4F or >38C), Cough, Flu-Like Symptoms COVID-19 Testing performed CORN GROWER: No Patient History Past Medical History: see triage record Past Surgical History: none Pertinent Family History: none Now: No Reviewed Nursing Documentation: PMH: Agreed; PSxH: Agreed Nursing Documentation-PMH Past Medical History: No Stated History Review of Systems All Other Systems: negative except mentioned in HPI Physical Exam Vital Signs Date Time Temp Pulse Resp B/P (MAP) Pulse Ox O2 Delivery O2 Flow Rate FiO2 12/02/20 18:22 98.1 74 20 130/75 (93) 98 Room Air Sp02 EP Interpretation: reviewed, normal General Appearance: no apparent distress, alert, GCS 15, non-toxic Head: normocephalic, atraumatic Eyes: bilateral eye normal inspection, bilateral eye PERRL ENT: hearing grossly normal, normal voice Neck: full range of motion Respiratory: lungs clear, normal breath sounds, speaking full sentences Cardiovascular #1: regular rate, rhythm, no edema Gastrointestinal: normal bowel sounds, soft, no peritonitis, non-distended, no guarding, tenderness - midline pelvic area. Rectal: deferred Genitourinary: normal inspection, no CVA tenderness, adnexa normal Musculoskeletal: back normal, normal range of motion, gait/station normal, non- tender Neurologic: alert, motor strength/tone normal, oriented x3, sensory intact, responsive, speech normal Psychiatric: judgement/insight normal Medical Decision Making PA Attestation Dr. Colunga is my supervising Physician whom patient management has been discussed with. Diagnostic Impression: Primary Impression: Ovarian cyst Qualified Codes: N83.202 - Unspecified ovarian cyst, left side Additional Impression: Pelvic pain ER Course 50 YO female presents to the ED c/o 8/10 in severity lower midline pelvic pain that is constant and described as pressure x 2 days. Pt. denies urinary frequency, urgency, hematuria or dysuria. Denies constipation or diarrhea. Denies nausea or vomiting. Denies fevers or chills. Denies pain or tenderness elsewhere in the abdomen. She denies vaginal bleeding. She reports some aching in the low back that is of lesser degree. She denies numbness, tingling, weakness or skin color changes of the LE's. She denies pain in the lower extremities. She denies PmHx. She denies taking any medications. Ddx considered but are not limited to Diverticulitis, acute appendicitis, diarrhea,UC, PUD, GE, pancreatitis, gallstone, ovarian torsion, ectopic , PID tubo-ovarian abscess. Vital signs: are WNL, pt. is afebrile. H&PE are most consistent with possible uterine fibroid as possible pathology, pt. non-toxic in appearance, NAD. Abdomen is soft, non-distended and not tender anywhere besides the bladder/uterus area. ORDERS: -UA: - US Pelvic w. transvaginal: Left ovarian cyst- simple, normal blood flow to both ovaries. ED INTERVENTIONS: - DISCHARGE: At this time pt. is stable for d/c to home. Will provide printed patient care instructions, and any necessary prescriptions. Care plan and follow up instructions have been discussed with the patient prior to discharge. Labs Test 12/02/20 18:37 Urine Color Pale yellow Urine Appearance Clear Urine pH 6.5 (4.5-8.0) Urine Specific [place] 1.005 (1.005-1.035) Urine Protein Negative (NEGATIVE) Urine Glucose (UA) Negative (NEGATIVE) Urine Ketones Negative (NEGATIVE) Urine Blood Negative (NEGATIVE) Urine Nitrite Negative (NEGATIVE) Urine Bilirubin Negative (NEGATIVE) Urine Urobilinogen Normal MG/DL (0.0-1.0) Urine Leukocyte Esterase Negative (NEGATIVE) CT/MRI/US Diagnostic Results CT/MRI/US Diagnostic Results : Imaging Test Ordered: Pelvic US Impression " ." --Per official radiology report- Please see report for specific details. Last Vital Signs Date Time Temp Pulse Resp B/P (MAP) Pulse Ox O2 Delivery O2 Flow Rate FiO2 12/02/20 18:22 98.1 74 20 130/75 (93) 98 Room Air Status: improved Disposition: HOME, SELF-CARE Condition: Stable Referrals: NOT CHOSEN IPA/,REFERRING (PCP) [facility] [place] [facility] Patient Instructions: Ovarian Cyst, [id number] Additional Instructions: Take medications as directed. Follow up with a Primary Care Provider in 3-5 days, even if your symptoms have resolved. --Please review list of primary care clinics, if you do not already have a primary care provider Return sooner to ED if new symptoms occur, or current symptoms become worse. - Please note that this Emergency Department Report was dictated using [employer] clerk technology software, occasionally this can lead to erroneous entry secondary to interpretation by the dictation equipment. Pia Bruner Dec 02, 2020 18:49
--- NOTE | 2020-12-02 18:58 | NUR ---
Patient walked into the ED with c/o lower abd pain onset 2 days ago. Pain 8/10, radiates to the back. Denies dysuria, normal urine, no N/V.
[2020-12-02 19:03] LABS: APPEARANCE,URINE CLEAR; BILIRUBIN, URINE NEGATIVE (NEGATIVE); COLOR,URINE PALE YELLOW; GLUCOSE, URINE (UA) NEGATIVE (NEGATIVE); KETONES,URINE NEGATIVE (NEGATIVE); LEUKOCYTE ESTERASE ,URINE NEGATIVE (NEGATIVE); NITRITE,URINE NEGATIVE (NEGATIVE); PH,URINE 6.5 (4.5-8.0); PROTEIN,URINE NEGATIVE (NEGATIVE); UROBILINOGEN,URINE NORMAL MG/DL (0.0-1.0)
[2020-12-02] MEDS ORDERED: Tylenol #3 tab (300mg/30mg) ORAL ONE (19:45)
[2020-12-02 20:00] VITALS: BP 128/74
[2020-12-02] MEDS ORDERED: Ketorolac 30mg Inj IV ONE (20:00)
[2020-12-02] MEDS ORDERED: Ketorolac 30mg Inj ONE (20:03)
[2020-12-02] MEDS ORDERED: IBUPROFEN600 M1 ORAL (20:05)
--- NOTE | 2020-12-02 20:09 | Diagnostic Imaging Report ---
EXAM: US Pelvis Transabdominal and Transvaginal, Complete CLINICAL HISTORY: PAIN TECHNIQUE: Real-time complete transabdominal and transvaginal pelvic ultrasound with image documentation. Transvaginal imaging was used for better evaluation of the endometrium and adnexa. COMPARISON: No relevant prior studies available. FINDINGS: Uterus/cervix: Uterus measures 9.7 x 4.2 x 6.9 cm. Endometrial complex measures 1.4 cm in thickness. Nabothian cysts within cervix. No myometrial mass. Right ovary: Right ovary measures 4.3 x 3.1 x 1.7 cm. No suspicious lesion. Blood flow present. Left ovary: Left ovary measures 2.8 x 2.9 x 1.6 cm. Dominant follicle measuring 1.4 cm. No suspicious lesion. Blood flow present. Free fluid: No free fluid. IMPRESSION: No acute findings in the pelvis.
== END 2020-12-02 20:27 | disposition home or self-care (01) ==
LOC: EMR 18:19
DX: N83.202 Unspecified ovarian cyst, left side (principal)
CPT/HCPCS: 76830; 76856; 81003; 96374; J1885; Z7502; 99284